=== PATIENT | male | born 1975 | race Caucasian/White ===

== ENCOUNTER 2020-01-23 07:00 | Inpatient (IN) | payer MEDICAID ==
[~2020-01-23] VITALS: Ht 185.4 cm; Wt 143.8 kg
[2020-01-23] MEDS ORDERED: FEE PK DOSING 1 MIN EA MC ONE (07:01)
[2020-01-23] MEDS ORDERED: MORPHINE SULFATE INJ 2 MG/ML DISP.SYRIN IV ONE (07:30)
[2020-01-23] MEDS ORDERED: ONDANSETRON HCL/PF 4 MG/2 ML VIAL IVP ONE (07:30)
[2020-01-23] MEDS ORDERED: IV NS 0.9% 500 ML BAG IV ONE (07:30)
--- NOTE | 2020-01-23 07:44 | NUR ---
PT REC'D TO ER VIA EMS LEFT LEG RED SWOLLEN CELLUTITIS FOR 3 DAYS HIV POS OFF MEDS FOR 1 MONTH HEART DECEMBER 2018 QUAD BYPASS . IV STARTED 18G LEFT AC LABS DRAWN SENT TO LAB
[2020-01-23] MEDS ORDERED: MORPHINE SULFATE INJ 4 MG/ML DISP.SYRIN ONE (07:46)
[2020-01-23] MEDS ORDERED: ONDANSETRON HCL/PF 4 MG/2 ML VIAL ONE (07:47)
[2020-01-23 07:55] LABS: BASOPHILS # (AUTO) 0.1 /CMM (0.0-0.2); BASOPHILS % (AUTO) 0.6 % (0.0-2.0); EOSINOPHILS % (AUTO) 0.3 % (0.0-6.0); HEMATOCRIT 44 % (39-51); HEMOGLOBIN 15.1 g/dL (13.5-17.5); LYMPHOCYTES # (AUTO) 2.1 /CMM (0.8-4.8); LYMPHOCYTES % (AUTO) 24.5 % (20.0-44.0); MEAN CORPUSCULAR HGB CONC 35 g/dl (31.0-36.0); MEAN CORPUSCULAR VOLUME 92 fL (80-96); MONOCYTES # (AUTO) 1.1 /CMM (0.1-1.30); NEUTROPHILS # (AUTO) 5.3 /CMM (1.8-8.9); NEUTROPHILS % (AUTO) 61.6 % (43.0-81.0); PLATELET COUNT (AUTO) 200 /CMM (150-450); RED BLOOD CELL COUNT(AUTO) 4.79 MIL/uL (4.5-6.0); WHITE BLOOD COUNT (AUTO) 8.7 K/uL (4.3-11.0)
[2020-01-23 08:00] LABS: CREATININE 1.4 mg/dL (0.6-1.3); POTASSIUM 3.1 mmol/L (3.5-5.1)
[2020-01-23] MEDS ORDERED: VANCOMYCIN 1 GM in IV D5W 250 ML IV ONE (08:00)
[2020-01-23] MEDS ORDERED: PIPERACILLIN /TAZOBACTAM 3.375 G in IV D5W 50 ML IV ONE (08:00)
[2020-01-23 08:15] LABS: BILIRUBIN,DIRECT 0.4 mg/dL (0.0-0.2); BILIRUBIN,TOTAL 1.3 mg/dL (0.2-1.0); TOTAL PROTEIN, SERUM 9.7 g/dL (6.4-8.2)
--- NOTE | 2020-01-23 08:28 | NUR ---
meds given per md order for pain ms 4 mgivp 10/10 pain left leg
--- NOTE | 2020-01-23 08:39 | NUR ---
iv meds given per m d order vss
--- NOTE | 2020-01-23 09:01 | NUR ---
pt given breakfast then fell asleep
[2020-01-23] MEDS ORDERED: LISI10TA5 PO (10:49)
[2020-01-23] MEDS ORDERED: METO25TA20 PO (10:49)
[2020-01-23] MEDS ORDERED: ATOR80TA PO (10:49)
[2020-01-23] MEDS ORDERED: FERR-68 PO (10:49)
[2020-01-23] MEDS ORDERED: ACETAMINOPHEN 325 MG TABLET PO PRN (11:00)
[2020-01-23] MEDS ORDERED: Z GUARD REMEDY 2 OZ OINT TP PRN (11:00)
[2020-01-23] MEDS ORDERED: MAG HYDROX/AL HYDROX/SIMETH 30 ML UDC PO PRN (11:00)
[2020-01-23] MEDS ORDERED: MAGNESIUM HYDROXIDE 30 ML UDC PO PRN (11:00)
[2020-01-23] MEDS ORDERED: HYDROCODONE/APAP 5/325MG 1 EACH TABLET PO PRN (11:00)
[2020-01-23] MEDS ORDERED: ZOLPIDEM TARTRATE 5 MG TABLET PO PRN (11:00)
[2020-01-23] MEDS ORDERED: ONDANSETRON HCL/PF 4 MG/2 ML VIAL IVP PRN (11:00)
--- NOTE | 2020-01-23 11:43 | NUR ---
PT STABLE FOR TRANSFER REPORT GIVEN TO ANNAMARIA
--- NOTE | 2020-01-23 12:28 | NUR ---
MS/RN New admit New admission from emergency room with left leg cellulitis. Patient A/O X4, stating that current pain scale is 8/10 to left leg. Informed that pain medication would be given as soon as pharmacy had entered it into computer. Patient fully admitted, pictures taken of left leg and scar to mid chest from previous triple bypass surgery in December of 2018. Oriented to new surroundings, aware of how to operate bed, television and how to call for help, patient stated understanding. Lunch tray ordered from kitchen. Will continue to monitor and ensure safety.
[2020-01-23 12:30] VITALS: BP 131/77
[2020-01-23] MEDS: MORPHINE SULFATE INJ 2 MG/ML DISP.SYRIN IV PRN ×2 (14:39→21:39)
[2020-01-23] MEDS: PIPERACILLIN /TAZOBACTAM 3.375 G in IV D5W 50 ML IV SCH ×2 (14:39→21:30)
--- NOTE | 2020-01-23 15:00 | NUR ---
MS/RN Zosyn Zosyn 3.375mg administered as ordered.
[2020-01-23] MEDS: VANCOMYCIN 0.75 GM in IV D5W 250 ML IV SCH (16:14)
--- NOTE | 2020-01-23 17:00 | NUR ---
MS/RN Vanco Vanco dose administered as ordered, trough scheduled for 0800 01/23 before third dose.
--- NOTE | 2020-01-23 18:17 | NUR ---
MS/RN End note Patient remains in stable condition, all needs attended. Both IVAB infused as ordered, no reaction noted. Encouraged to keep both lower extremities elevated on pillows whist in bed to help reduce edema. All questions and concerns addressed, call light within reach. Will endorse to shift production supervisor.
[2020-01-23 20:00] VITALS: BP 140/89
--- NOTE | 2020-01-23 20:10 | NUR ---
RN NOTES: MET WITH PT AT BED SIDE. PT A/O X4, ON RA RESPIRATIONS EVEN A ND UNLABORED. IV ACCESS PATENT AND FLUSHING WELL ON HL. LLE NOTED TO BE SWELLING, PT ABLE TO MOVE AND WIGGLE TOES, DENIES ANY NUMBNESS TINGLING SENSATION, BUT CLAIMED THAT PAIN IS THROBBING AND SHARP WHEN MOVING LEGS. DISCUSSED PLAN OF CARE TO PT. SAFETY PRECAUTIONS FOR FALL INITIATED, CALL LIGHT IN REACH, WILL CONTINUE MONITORING PT.
--- NOTE | 2020-01-23 21:40 | NUR ---
MS RN PRN MORPHINE: PT C/O OF 8/10 PAIN ON LEFT LEG REQUESTING PAIN MEDICATION. MEDICATION PRN MORPHINE 2MG IV PUSH ADMINISTERED AT THIS TIME. WILL CONTINUE TO MONITOR.
[2020-01-23] MEDS ORDERED: POTASSIUM CHLORIDE 20 MEQ TAB.PRT.SR PO ONE (22:00)
--- NOTE | 2020-01-24 | NUR ---
RN NOTES: FOUND ORDER FOR US ABDOMEN IN AM, PLACED PT ON NPO P MN, PT AGREE AND UNDERSTAND.
[2020-01-24] MEDS: VANCOMYCIN 0.75 GM in IV D5W 250 ML IV SCH ×2 (00:45→09:21)
[2020-01-24] MEDS: PIPERACILLIN /TAZOBACTAM 3.375 G in IV D5W 50 ML IV SCH ×4 (02:52→21:28)
--- NOTE | 2020-01-24 06:43 | NUR ---
end of shift report: pt cooperative throughout the shift, prn morphine administered for c/o left leg pain post ambulation last night. all due meds administered. pt currently on npo awaiting for us of abdomen/liver. lle kept offloaded on pillows. according to pt, his left has improved a lot compared to past 3days and pt very pleased with the result. iv access on right ac remains patent and flushing well, on hl, no s/s of iv infiltration noted. safety precautions for fall remains engaged, call light in reach, hourly rounding performed. will endorse to day rn for continuity of care.
[2020-01-24 07:13] LABS: BASOPHILS % (AUTO) 0.5 % (0.0-2.0); EOSINOPHILS % (AUTO) 1.3 % (0.0-6.0); HEMATOCRIT 39 % (39-51); HEMOGLOBIN 13.3 g/dL (13.5-17.5); LYMPHOCYTES # (AUTO) 1.9 /CMM (0.8-4.8); LYMPHOCYTES % (AUTO) 27.6 % (20.0-44.0); MEAN CORPUSCULAR HGB CONC 34 g/dl (31.0-36.0); MEAN CORPUSCULAR VOLUME 91 fL (80-96); MONOCYTES # (AUTO) 0.9 /CMM (0.1-1.30); MONOCYTES % (AUTO) 13.5 % (2.0-12.0); NEUTROPHILS % (AUTO) 57.1 % (43.0-81.0); PLATELET COUNT (AUTO) 188 /CMM (150-450); RED BLOOD CELL COUNT(AUTO) 4.28 MIL/uL (4.5-6.0)
[2020-01-24 07:30] LABS: ALBUMIN 2.6 g/dL (3.4-5.0); BILIRUBIN,DIRECT 0.3 mg/dL (0.0-0.2); CALCIUM, SERUM 8.7 mg/dL (8.5-10.1); CREATININE 1.4 mg/dL (0.6-1.3); MAGNESIUM 2.2 mg/dL (1.8-2.4); POTASSIUM 3.2 mmol/L (3.5-5.1); TOTAL PROTEIN, SERUM 8.5 g/dL (6.4-8.2)
[2020-01-24 07:37] LABS: THYROID STIMULATING HORMONE 2.303 uIU/mL (0.358-3.74)
[2020-01-24 08:00] VITALS: BP 125/83
[2020-01-24] MEDS: METOPROLOL TARTRATE 25 MG TABLET PO SCH (08:39)
[2020-01-24] MEDS: PANTOPRAZOLE 40 MG TABLET.DR PO SCH (08:39)
[2020-01-24] MEDS: FERROUS SULFATE (325 MG) 325 MG/TAB TABLET PO SCH (08:39)
[2020-01-24] MEDS: LISINOPRIL (10MG) 10 MG TABLET PO SCH ×2 (08:40→17:23)
[2020-01-24] MEDS ORDERED: DOLU50TA PO (08:52)
[2020-01-24] MEDS ORDERED: EMTR1TAB17 PO (08:52)
--- NOTE | 2020-01-24 09:35 | NUR ---
WOUND CARE CONSULT: PT PRESENTS WITH RED SWOLLEN LEFT LOWER LEG, PRESENT ON ADMISSION. LEGS ELEVATED. NO OPEN WOUNDS NOTED. PT IS INDEPENDENT WITH BED MOBILITY AND CONTINENT. WILL SEE PRN. CURRENT FREDI SCORE IS 19.
[2020-01-24 16:00] VITALS: BP 111/61
[2020-01-24] MEDS: VANCOMYCIN 1 GM in IV D5W 250ml IV SCH (17:17)
--- NOTE | 2020-01-24 19:07 | NUR ---
HANDOFF WITH NOELLE ARIZMENDI, NIGHT TEAM. ALYSHA Calvert RN
--- NOTE | 2020-01-24 19:10 | NUR ---
MS RN NOTES RECEIVED PT IN BED AWAKE AND ABLE TO MAKE NEEDS KNOWN. PT A/OX3. RESPIRATIONS EVEN AND UNLABORED WITH NO S/S OF ACUTE DISTRESS OR SOB NOTED. NO COMPLAINTS OF PAIN AT THIS TIME. SAFETY MEASURES IN PLACE WITH BED IN LOWEST LOCKED POSITION WITH SIDE RAILS UPX2. CALL LIGHT WITHIN REACH. WILL CONTINUE TO MONITOR.
[2020-01-24 20:00] VITALS: BP 118/71
[2020-01-25] MEDS: VANCOMYCIN 1 GM in IV D5W 250ml IV SCH ×3 (00:20→16:33)
[2020-01-25] MEDS: PIPERACILLIN /TAZOBACTAM 3.375 G in IV D5W 50 ML IV SCH ×4 (04:04→20:25)
[2020-01-25 06:56] LABS: BASOPHILS % (AUTO) 0.5 % (0.0-2.0); EOSINOPHILS % (AUTO) 2.5 % (0.0-6.0); HEMATOCRIT 39 % (39-51); HEMOGLOBIN 12.9 g/dL (13.5-17.5); LYMPHOCYTES # (AUTO) 2.1 /CMM (0.8-4.8); MEAN CORPUSCULAR HGB CONC 34 g/dl (31.0-36.0); MEAN CORPUSCULAR VOLUME 93 fL (80-96); MONOCYTES # (AUTO) 0.7 /CMM (0.1-1.30); MONOCYTES % (AUTO) 9.5 % (2.0-12.0); NEUTROPHILS # (AUTO) 4.4 /CMM (1.8-8.9); NEUTROPHILS % (AUTO) 59.5 % (43.0-81.0); PLATELET COUNT (AUTO) 194 /CMM (150-450); RED BLOOD CELL COUNT(AUTO) 4.17 MIL/uL (4.5-6.0); WHITE BLOOD COUNT (AUTO) 7.4 K/uL (4.3-11.0)
[2020-01-25 07:09] LABS: CALCIUM, SERUM 8.5 mg/dL (8.5-10.1); CREATININE 1.1 mg/dL (0.6-1.3); MAGNESIUM 2.3 mg/dL (1.8-2.4); POTASSIUM 3.3 mmol/L (3.5-5.1)
[2020-01-25 07:21] LABS: ALBUMIN 2.5 g/dL (3.4-5.0); BILIRUBIN,DIRECT 0.2 mg/dL (0.0-0.2); BILIRUBIN,TOTAL 0.5 mg/dL (0.2-1.0); TOTAL PROTEIN, SERUM 8.3 g/dL (6.4-8.2)
--- NOTE | 2020-01-25 07:21 | NUR ---
MS RN NOTES RECEIVED PT IN BED AWAKE AND ABLE TO MAKE NEEDS KNOWN. PT A/OX3. RESPIRATIONS EVEN AND UNLABORED WITH NO S/S OF ACUTE DISTRESS OR SOB NOTED THROUGHOUT SHIFT. NO COMPLAINTS OF PAIN AT THIS TIME. SAFETY MEASURES IN PLACE WITH BED IN LOWEST LOCKED POSITION WITH SIDE RAILS UPX2. CALL LIGHT WITHIN REACH. WILL ENDORSE TO ONCOMING NURSE FOR VELMA.
[2020-01-25] MEDS: PANTOPRAZOLE 40 MG TABLET.DR PO SCH (07:40)
--- NOTE | 2020-01-25 07:51 | NUR ---
MS/RN OPENING NOTES RECEIVED PATIENT IN BED AWAKE. PATIENT A/OX3. RESPIRATIONS EVEN AND UNLABORED WITH NO S/S OF ACUTE DISTRESS NOTED. NO COMPLAINTS OF PAIN AT THIS TIME. SAFETY MEASURES IN PLACE WITH BED IN LOWEST LOCKED POSITION WITH SIDE RAILS UPX2. CALL LIGHT WITHIN REACH. WILL CONTINUE TO MONITOR.
[2020-01-25 08:08] VITALS: BP 126/67
[2020-01-25] MEDS: METOPROLOL TARTRATE 25 MG TABLET PO SCH (08:29)
[2020-01-25] MEDS: FERROUS SULFATE (325 MG) 325 MG/TAB TABLET PO SCH (08:29)
[2020-01-25] MEDS ORDERED: POTASSIUM CHLORIDE 20 MEQ TAB.PRT.SR PO ONE (08:30)
[2020-01-25] MEDS: LISINOPRIL (10MG) 10 MG TABLET PO SCH ×2 (08:30→16:57)
[2020-01-25 16:12] VITALS: BP 115/72
--- NOTE | 2020-01-25 18:47 | NUR ---
MS/RN CLOSING NOTES PATIENT IS ALERT AND ORIENTED X4. PATIENT IN NO APPARENT DISTRESS NOTED. DENIES PAIN AT THIS TIME. IV ACCESS AT LEFT AC #22G INTACT AND PATENT. SEEN AND EXAMINED BY MD WITH NO NEW ORDER AND NOTED. CHECKED PATIENT EVERY 2 HOURS. KEPT PATIENT CLEAN AND COMFORTABLE THE WHOLE TIME . ALL DUE MEDS WAS GIVEN. ALL NEEDS WAS ATTENDED. BED IN LOWEST POSITION. SIDE RAILS UP X2. CALL LIGHT WITH IN REACH. WILL ENDORSED TO PERINATAL BREASTFEEDING ASSISTANT FOR VELMA.
--- NOTE | 2020-01-25 19:17 | NUR ---
MS RN OPENING NOTES: RECEIVED PT ON ROOM AIR AND IS TOLERATING WELL. PT LAYING DOWN ON BED AND IS A/OX4. PT IS WATCHING TELEVISION AT THIS TIME. NO SOB NOTED. NO S/S OF DISTRESS. PT HAS IV ON L FOREARM #22G AND IS PATENT AND INTACT. CURRENTLY H/L. BED KEPT IN LOW, LOCKED POSITION, AND SIDE RAILS X 2 UP. WILL CONTINUE TO MONITOR PT.
[2020-01-25 20:00] VITALS: BP 137/77
[2020-01-26] MEDS: VANCOMYCIN 1.25 GM in IV D5W 250 ML IV SCH ×2 (00:16→08:58)
[2020-01-26] MEDS: PIPERACILLIN /TAZOBACTAM 3.375 G in IV D5W 50 ML IV SCH ×3 (02:01→11:27)
--- NOTE | 2020-01-26 06:42 | NUR ---
MS RN CLOSING NOTES: ALL NEEDS WERE ATTENDED AND ANTICIPATED FOR. PT INDEPENDENT AND IS LAYING IN BED USING HIS PHONE AT THIS TIME. NO SOB NOTED. NO S/S OF DISTRESS. IV REMAINS INTACT ON L FOREARM #22G AND IS PATENT AND INTACT. HAS BEEN FLUSHED. CURRENTLY H/L. BED KEPT IN LOW, LOCKED POSITION, AND SIDE RAILS X 2UP. INSTRUCTED PT TO USE CALL LIGHT FOR ASSISTANCE. WILL ENDORSE TO AM NURSE FOR VELMA.
--- NOTE | 2020-01-26 07:10 | NUR ---
MS RN OPENING NOTES RECEIVED PT IN BED AWAKE AT THIS TIME WITH HOB ELEVATED. AOX4. RESPIRATIONS EVEN AND UNLABORED. PT SATURATING WELL ON RA AT 98%. NO S/S OF ANY ACUTE DISTRESS NOTED. NO COMPLAINS OF PAIN AT THIS TIME. IV ACCESS ON LFA G#22, INTACT AND PATENT. PT ABLE TO VERBALIZE NEEDS, PT UNDERSTANDS TO CALL FOR ASSISTANCE. SAFETY PRECAUTIONS IN PLACE. BED IN LOWEST LOCKED POSITION, SIDE RAILS UP X 2, CALL LIGHT WITHIN REACH. WILL CONTINUE TO MONITOR
--- NOTE | 2020-01-26 07:16 | NUR ---
MS RN CLOSING NOTES: ENDORSED TO AM NURSE, NA, FOR VELMA.
[2020-01-26 07:28] LABS: BASOPHILS % (AUTO) 0.5 % (0.0-2.0); CALCIUM, SERUM 8.8 mg/dL (8.5-10.1); CREATININE 1.2 mg/dL (0.6-1.3); EOSINOPHILS % (AUTO) 2.4 % (0.0-6.0); HEMATOCRIT 40 % (39-51); HEMOGLOBIN 13.5 g/dL (13.5-17.5); LYMPHOCYTES # (AUTO) 2.1 /CMM (0.8-4.8); LYMPHOCYTES % (AUTO) 28.2 % (20.0-44.0); MEAN CORPUSCULAR HGB CONC 34 g/dl (31.0-36.0); MEAN CORPUSCULAR VOLUME 93 fL (80-96); MONOCYTES # (AUTO) 0.6 /CMM (0.1-1.30); MONOCYTES % (AUTO) 8.2 % (2.0-12.0); NEUTROPHILS # (AUTO) 4.6 /CMM (1.8-8.9); NEUTROPHILS % (AUTO) 60.7 % (43.0-81.0); PLATELET COUNT (AUTO) 229 /CMM (150-450); POTASSIUM 3.6 mmol/L (3.5-5.1); WHITE BLOOD COUNT (AUTO) 7.6 K/uL (4.3-11.0)
[2020-01-26 08:00] VITALS: BP 127/78
[2020-01-26] MEDS: PANTOPRAZOLE 40 MG TABLET.DR PO SCH (08:07)
[2020-01-26] MEDS: FERROUS SULFATE (325 MG) 325 MG/TAB TABLET PO SCH (09:00)
[2020-01-26 09:01] VITALS: BP 127/78
[2020-01-26] MEDS: LISINOPRIL (10MG) 10 MG TABLET PO SCH (09:01)
[2020-01-26] MEDS: METOPROLOL TARTRATE 25 MG TABLET PO SCH (09:01)
[2020-01-26] MEDS ORDERED: DOXY100C41 PO (09:13)
--- NOTE | 2020-01-26 14:03 | NUR ---
RN MS NOTES PT AWAKE, ALERT AND ORIENTED, AMBULATES WITH STEADY GAIT IN HIS ROOM AND TO THE BATHROOM, SEEN BY DR. PERSON, DISCHARGE ORDER GIVEN, DISCHARGE AND MEDICATION INSTRUCTIONS PROVIDED TO PT, VERBALIZED UNDERSTANDING, NEW PRESCRIPTION GIVEN TO PT, BELONGINGS ACCOUNTED FOR, ASSISTED PT TO HOSPITAL LOBBY, LEFT IN STABLE CONDITION.
== END 2020-01-26 14:00 | disposition home or self-care (01) | DRG 383 ==
LOC: ER 07:00 → MED 11:40
PROVIDERS: ADMIT Student in an Organized Health Care Education/Training Program; ATTEND Nurse Practitioner Acute Care
DX: L03.116 Cellulitis of left lower limb (principal); N17.0 Acute kidney failure with tubular necrosis; E44.0 Moderate protein-calorie malnutrition; E87.1 Hypo-osmolality and hyponatremia; I25.10 Atherosclerotic heart disease of native coronary artery without angina pectoris; Z95.1 Presence of aortocoronary bypass graft; I12.9 Hypertensive chronic kidney disease with stage 1 through stage 4 chronic kidney disease, or unspecified chronic kidney disease; N18.9 Chronic kidney disease, unspecified; R74.0 Nonspecific elevation of levels of transaminase and lactic acid dehydrogenase [LDH]; E87.6 Hypokalemia; E78.5 Hyperlipidemia, unspecified; Z68.41 Body mass index [BMI] 40.0-44.9, adult; Z91.14 Patient's other noncompliance with medication regimen; E88.09 Other disorders of plasma-protein metabolism, not elsewhere classified
CPT/HCPCS: 36415; 76700-TC; 80048-TC; 80061-TC; 80076-TC; 80202-TC; 83735-TC; 84100-TC; 84443-TC; 85025-TC; 85730-TC; 87040-TC; 87081-TC; 97116-TC; 97530-TC; G0378; J2270; J2405; J2543; J3370; J7030; J7050; J7060

== ENCOUNTER 2020-03-24 11:26 | Emergency (ER) | payer MEDICAID ==
[~2020-03-24] VITALS: Ht 185.4 cm; Wt 145.1 kg
[~2020-03-24 11:26] MED LIST: ATOR80TA PO; DOLU50TA PO; DOXY100C41 PO; EMTR1TAB17 PO; FERR-68 PO; METO25TA20 PO
[2020-03-24 11:58] VITALS: BP 137/92
[2020-03-24] MEDS ORDERED: predniSONE 20 MG TABLET ONE (12:05)
[2020-03-24] MEDS ORDERED: CLINDAMYCIN HCL 150 MG CAPSULE PO ONE ×2 (12:05→12:30)
--- NOTE | 2020-03-24 12:10 | NUR ---
Patient discharged to home in stable condition. Written and verbal after care instructions given. Patient verbalizes understanding of instruction. Pt ambulatory with a steady gait
[2020-03-24] MEDS ORDERED: predniSONE 20 MG TABLET PO ONE (12:30)
== END 2020-03-24 12:12 | disposition home or self-care (01) ==
LOC: ER 11:31
DX: J36 Peritonsillar abscess (principal); Z95.1 Presence of aortocoronary bypass graft; Z60.2 Problems related to living alone; Z79.899 Other long term (current) drug therapy
CPT/HCPCS: 99283; J7512

== ENCOUNTER 2022-05-02 12:44 | Emergency (ER) | payer MEDICAID ==
[~2022-05-02] VITALS: Ht 185.4 cm; Wt 140.6 kg
[~2022-05-02 12:44] MED LIST changes: +DOXY-326 PO; -DOXY100C41 PO
[2022-05-02] MEDS ORDERED: LIDOCAINE 1%-EPI 1:100,000 20 ML VIAL ONE (13:24)
--- NOTE | 2022-05-02 13:28 | NUR ---
Patient came in to the er c/o L side buttock pain from ascess x 4 days, started draining last night. On room air, breathing evenly and unlabored. Kept comfortable, will continue to monitor accordingly.
[2022-05-02] MEDS ORDERED: LIDOCAINE 1%-EPI 1:100,000 50 ML VIAL IJ ONE (13:30)
[2022-05-02] MEDS ORDERED: SULF1TAB47 PO (13:54)
[2022-05-02 14:01] VITALS: BP 110/71
--- NOTE | 2022-05-02 14:02 | NUR ---
Patient discharged to home in stable condition. Written and verbal after care instructions given. Patient verbalizes understanding of instruction.
== END 2022-05-02 14:02 | disposition home or self-care (01) ==
LOC: ER 13:01
DX: L02.416 Cutaneous abscess of left lower limb (principal); Z60.2 Problems related to living alone; Z98.890 Other specified postprocedural states; Z79.899 Other long term (current) drug therapy
CPT/HCPCS: 99284; 10060; J3490 ×2; A6407

== ENCOUNTER 2023-03-21 07:00 | Inpatient (IN) | payer MEDICAID, OTHER ==
[~2023-03-21] VITALS: Ht 182.9 cm; Wt 121.1 kg
[~2023-03-21 07:00] MED LIST changes: +SULF1TAB47 PO
--- NOTE | 2023-03-21 07:15 | NUR ---
RICARDO TO BE SEEN BY JAMISON PT FROM [facility] AWAKE PROVIDER
--- NOTE | 2023-03-21 07:22 | NUR ---
Saul AOx4, able to express his concerns. Saul states he has been experiencing lower extremity edema for a while "on and off", today is worse. Discussed plan of care, saul verbalized agreement. All safety precautions taken.
--- NOTE | 2023-03-21 07:48 | NUR ---
IV ACCESS ESTABLISHED. 18G LEFT AC. BLOOD DRAWN AND SENT TO LAB INCLUDING CULTURES.
[2023-03-21] MEDS ORDERED: VANCOMYCIN HCL 1.25 GM in IV D5W 260 ML IV ONE (08:00)
[2023-03-21 08:10] LABS: BASOPHILS % (AUTO) 0.3 % (0.0-2.0); EOSINOPHILS % (AUTO) 0.3 % (0.0-6.0); HEMATOCRIT 40 % (39-51); HEMOGLOBIN 13.2 g/dL (13.5-17.5); LYMPHOCYTES # (AUTO) 1.4 K/uL (0.8-4.8); LYMPHOCYTES % (AUTO) 10.7 % (20.0-44.0); MEAN CORPUSCULAR HGB CONC 33 g/dl (31.0-36.0); MEAN CORPUSCULAR VOLUME 88 fL (80-96); MONOCYTES # (AUTO) 1.1 K/uL (0.1-1.30); MONOCYTES % (AUTO) 8.4 % (2.0-12.0); NEUTROPHILS # (AUTO) 10.3 K/uL (1.8-8.9); NEUTROPHILS % (AUTO) 80.3 % (43.0-81.0); PLATELET COUNT (AUTO) 182 K/uL (150-450); RED BLOOD CELL COUNT(AUTO) 4.54 MIL/uL (4.5-6.0); WHITE BLOOD COUNT (AUTO) 12.8 K/uL (4.3-11.0)
[2023-03-21 08:33] LABS: ALANINE AMINOTRANSFERASE 53 U/L (12-78); ALBUMIN 2.3 g/dL (3.4-5.0); ALKALINE PHOSPHATASE 123 U/L (46-116); ASPARTATE AMINOTRANSFERASE 49 U/L (15-37); BILIRUBIN,DIRECT 0.6 mg/dL (0.0-0.2); BILIRUBIN,TOTAL 1.3 mg/dL (0.2-1.0); CALCIUM, SERUM 8.9 mg/dL (8.5-10.1); CARBON DIOXIDE 25 mmol/L (21-32); CHLORIDE 99 mmol/L (98-107); CREATININE 2.8 mg/dL (0.6-1.3); GLUCOSE 126 mg/dL (74-106); SODIUM SERUM 137 mmol/L (136-145); UREA NITROGEN, BLOOD 23 mg/dL (7-18)
[2023-03-21 08:35] LABS: POTASSIUM 2.5 mmol/L (3.5-5.1)
--- NOTE | 2023-03-21 08:36 | NUR ---
POTASSIUM 2.5 , MADE AWARE
[2023-03-21] MEDS ORDERED: POTASSIUM CHLORIDE 20 MEQ TAB.PRT.SR PO ONE ×2 (09:30→09:38)
[2023-03-21] MEDS ORDERED: POTASSIUM CL. PREMIX PERIPHER. 100 ML ONE ×2 (09:38→11:41)
[2023-03-21] MEDS ORDERED: ASPI-1169 PO (09:40)
[2023-03-21] MEDS ORDERED: LISI10TA29 PO (09:40)
[2023-03-21] MEDS ORDERED: ACET-2605 PO (09:40)
[2023-03-21] MEDS ORDERED: OMEP40CA21 PO (09:40)
[2023-03-21] MEDS ORDERED: BICT1TAB MT (09:40)
[2023-03-21] MEDS ORDERED: SEMA1PEN SQ (09:40)
--- NOTE | 2023-03-21 09:40 | NUR ---
resting and asleepy no pain
[2023-03-21] MEDS ORDERED: OMEG1CAP PO (09:45)
[2023-03-21] MEDS: POTASSIUM CL. PREMIX PERIPHER. 50 ML IV SCH ×4 (09:56→13:03)
--- NOTE | 2023-03-21 11:28 | NUR ---
room 327-2
--- NOTE | 2023-03-21 11:55 | NUR ---
HAND OFF CARMELA. JOSIAH DRAKE TO ROOM 327-2 VIA SUNDAR HERMOSILLO VS AND CONDITION
[2023-03-21] MEDS ORDERED: ACETAMINOPHEN ES 500 MG TABLET PO PRN (12:00)
[2023-03-21] MEDS ORDERED: ZOLPIDEM TARTRATE 5 MG TABLET PO PRN (12:00)
[2023-03-21] MEDS ORDERED: MAGNESIUM HYDROXIDE 30 ML UDC PO PRN (12:00)
[2023-03-21] MEDS ORDERED: Z GUARD REMEDY 4 OZ OINT TP PRN (12:00)
[2023-03-21] MEDS ORDERED: CEFEPIME 1 GM in IV D5W 50 ML IV SCH (12:00)
[2023-03-21] MEDS ORDERED: DEXTROSE 50%-WATER 50 ML DISP.SYRIN IV PRN (12:00)
[2023-03-21] MEDS ORDERED: MAG HYDROX/AL HYDROX/SIMETH 30 ML UDC PO PRN (12:00)
--- NOTE | 2023-03-21 12:00 | NUR ---
ADMISSION RN NOTES: ADMITTED A 47YO MALE PT FROM ER VIA GURNEY ACCOMPANIED BY TRANSPORTER AND NOELLE MADRIGAL. RECEIVED REPORT FROM NOELLE MADRIGAL. PT IS AMBULATORY. PT ALERT AND ORIENTED X 4 AND ABLE TO MAKE NEEDS KNOWN. ON ROOM AIR AND TOLERATING WELL. DENIES PAIN AT THIS TIME. IV ACCESS ON LEFT AC GAUGE 18 RUNNING POTASSIUM CHLORIDE FROM ER AND GAVE A 1 BAG OF KCL FROM NOELLE MADRIGAL.SKIN ASSESSMENT DONE-ITS LIMITED BECAUSE PT IS HAVING HARD TIME TURNING BUT PT IS COOPERATIVE. ALL BELONGINGS AT BED SIDE. ATTACHED TELE MONITOR WITH CURRENT READING NORMAL SINUS @98BPM. INTRODUCED PT TO STAFFS,UNIT AND ROOM MATE. PROVIDED WATER AND BED SIDE TABLE,. SAFETY MEASURES INITIATED: BED LOCKED AND IN LOWEST POSITION: SIDE RAILS UP X 2 CALL LIGHT IN EASY REACH AND WILL MONITOR PT ACCORDINGLY.
[2023-03-21] MEDS: BLOOD SUGAR DIAGNOSTIC 1 EACH STRIP IN SCH ×3 (12:05→21:32)
[2023-03-21] MEDS ORDERED: HYDROMORPHONE 1 MG/1 ML DISP.SYRIN IV PRN (12:30)
--- NOTE | 2023-03-21 13:00 | NUR ---
RN NOTES: INSTRUCTED PT TO BRING HIV MEDS PER PHARMACIST. PT STATED YES HIS FRIEND WILL BRING OVER. WILL REMIND AGAIN AND WILL ENDORSE TO NEXT SHIFT.
[2023-03-21] MEDS: ACETAMINOPHEN 325 MG TABLET PO PRN (13:19)
[2023-03-21] MEDS: CEFEPIME 2 GM in IV D5W 100 ML IV SCH (13:21)
--- NOTE | 2023-03-21 14:42 | NUR ---
NAUSEA AND VOMITING: PT VOMITED HIS FOOD, ZOFRAN IV GIVEN INTRAVENOUSLY.
[2023-03-21] MEDS: ONDANSETRON HCL/PF 4 MG/2 ML VIAL IVP PRN (14:43)
[2023-03-21 15:30] VITALS: BP 128/69
[2023-03-21] MEDS: PANTOPRAZOLE 40 MG TABLET.DR PO SCH (16:47)
[2023-03-21] MEDS: INSULIN REGULAR, HUMAN 100 UNIT/ML 3 ML VIAL SQ PRN ×2 (16:49→21:32)
[2023-03-21] MEDS: IV NS 0.9% 1,000 ML IV PRN (16:51)
--- NOTE | 2023-03-21 17:10 | NUR ---
RN NOTES: CEASED NAUSEA AND VOMITING PER PT STATED.
--- NOTE | 2023-03-21 18:55 | NUR ---
AUTOMOBILE RENTAL AGENT CLOSING NOTES: PT IN BED ASLEEP, EASILY AROUSED WITH STIMULI, ALERT AND ORIENTED X 4 AND ABLE TO MAKE NEEDS KNOWN NO SOB OR CARDIAC DISTRESS NOTED. DENIES ANY PAIN/DISCOMFORTS AT THIS TIME. IV ACCESS ON LAC GAUGE 18 PATENT INTACT AND INFUSING NS 1L @90ML/HR. SAFETY MEASURES MAINTAINED BED LOCKED AND IN LOWEST POSITION, SIDE RAILS UP X 2. CALL LIGHT IN EASY REACH. WILL ENDORSE TO BOX SEALING MACHINE CATCHER NURSE FOR CONTINUITY OF CARE.
--- NOTE | 2023-03-21 19:00 | NUR ---
RN OPENING NOTE RECEIVED PT ASLEEP IN BED. PT IS A/O X 4. PT IS IN RA, TOLERATING WELL, BREATHING EVEN AND UNLABORED @ THIS TIME. PT IV PRESENT IS LEFT AC #18G, RUNNING NS @90MLS/HR, PATENT, INTACT AND FLUSHES WELL W/ NO S&SX OF INFILTRATION @ SITE NOTED. PT MUSICAL THERAPIST IS IN PLACE WITH CURRENT READING OF SINUS RHYTHM, HR OF 112BPM. SAFETY MEASURES IS IN PLACE. BED IN LOWEST & LOCKED POSITION. SIDE RAILS UP X 2. BEDSIDE TABLE AND CALL LIGHT IS WITHIN REACH. BED ALARM IS ON. WILL CONTINUE TO MONITOR PT ACCORDINGLY.
[2023-03-21 20:00] VITALS: BP 135/79
[2023-03-21] MEDS: ATORVASTATIN 40 MG TABLET PO SCH (21:07)
--- NOTE | 2023-03-21 21:33 | NUR ---
HELD INSULIN REGULAR D/T PT BLOOD GLUCOSE OF 94.
--- NOTE | 2023-03-21 22:37 | NUR ---
PT CALLED COMPLAINING OF FEELING BLOTED AND GASSY.
--- NOTE | 2023-03-21 22:39 | NUR ---
MAALOX SUSPENSION 30 ML GIVEN TO PT FOR BLOATING AND GASSINESS.
[2023-03-22] VITALS: BP 125/83
[2023-03-22] MEDS: CEFEPIME 2 GM in IV D5W 100 ML IV SCH ×2 (00:02→14:24)
[2023-03-22] MEDS: IV NS 0.9% 1,000 ML IV PRN (03:39)
[2023-03-22 04:00] VITALS: BP 153/79
[2023-03-22] MEDS: BLOOD SUGAR DIAGNOSTIC 1 EACH STRIP IN SCH ×4 (06:31→22:29)
[2023-03-22] MEDS: INSULIN REGULAR, HUMAN 100 UNIT/ML 3 ML VIAL SQ PRN ×4 (06:32→22:29)
--- NOTE | 2023-03-22 06:33 | NUR ---
RN OPENING NOTE PT AWAKE & RESTING COMFORTABLY IN BED. PT IS A/O X 4. RESPOSNIVE AND FOLLOWS VERBAL COMMAND. PT IS IN RA, W/ NO S&SX OF RESPIRATORY DISTRESS @ THIS TIME. PT IV PRESENT IS LEFT AC #18G, RUNNING NS @90MLS/HR, PATENT, INTACT AND FLUSHES WELL W/ NO S&SX OF INFILTRATION @ SITE NOTED. PT COPY PREPARER IS IN PLACE WITH CURRENT READING OF SINUS BRADYCARDIA, HR 54BPM. SAFETY MEASURES IS IN PLACE. BED IN LOWEST & LOCKED POSITION. SIDE RAILS UP X 2. BEDSIDE TABLE AND CALL LIGHT IS WITHIN REACH. BED ALARM IS ON. WILL ENDORSE TO THE NEXT SHIFT FOR VELMA. Addendum: 03/22/23 at 0636 by ROSE CROCKETT RN ERROR NOTES
--- NOTE | 2023-03-22 06:33 | NUR ---
HELD INSULIN REGULAR D/T PT BLOOD GLUCOSE OF 104.
[2023-03-22 06:35] LABS: BASOPHILS % (AUTO) 0.3 % (0.0-2.0); EOSINOPHILS % (AUTO) 0.9 % (0.0-6.0); HEMATOCRIT 37 % (39-51); HEMOGLOBIN 12.2 g/dL (13.5-17.5); LYMPHOCYTES # (AUTO) 1.7 K/uL (0.8-4.8); LYMPHOCYTES % (AUTO) 15.7 % (20.0-44.0); MEAN CORPUSCULAR HGB CONC 33 g/dl (31.0-36.0); MEAN CORPUSCULAR VOLUME 89 fL (80-96); MONOCYTES # (AUTO) 0.9 K/uL (0.1-1.30); MONOCYTES % (AUTO) 8.8 % (2.0-12.0); NEUTROPHILS # (AUTO) 7.9 K/uL (1.8-8.9); NEUTROPHILS % (AUTO) 74.3 % (43.0-81.0); PLATELET COUNT (AUTO) 171 K/uL (150-450); RED BLOOD CELL COUNT(AUTO) 4.16 MIL/uL (4.5-6.0); WHITE BLOOD COUNT (AUTO) 10.6 K/uL (4.3-11.0)
--- NOTE | 2023-03-22 06:36 | NUR ---
RN CLOSING NOTE PT AWAKE & RESTING COMFORTABLY IN BED. PT IS A/O X 4. RESPOSNIVE AND FOLLOWS VERBAL COMMAND. PT IS IN RA, W/ NO S&SX OF RESPIRATORY DISTRESS @ THIS TIME. PT IV PRESENT IS LEFT AC #18G, RUNNING NS @90MLS/HR, PATENT, INTACT AND FLUSHES WELL W/ NO S&SX OF INFILTRATION @ SITE NOTED. PT LEPIDOPTERIST IS IN PLACE WITH CURRENT READING OF SINUS RHYTHM, HR 79BPM. SAFETY MEASURES IS IN PLACE. BED IN LOWEST & LOCKED POSITION. SIDE RAILS UP X 2. BEDSIDE TABLE AND CALL LIGHT IS WITHIN REACH. BED ALARM IS ON. WILL ENDORSE TO THE NEXT SHIFT FOR VELMA.
[2023-03-22 06:47] LABS: CALCIUM, SERUM 8.8 mg/dL (8.5-10.1); CREATININE 1.5 mg/dL (0.6-1.3); MAGNESIUM 1.9 mg/dL (1.8-2.4); PHOSPHORUS 3.3 mg/dL (2.5-4.9); POTASSIUM 2.9 mmol/L (3.5-5.1); TOTAL PROTEIN, SERUM 7.8 g/dL (6.4-8.2)
--- NOTE | 2023-03-22 07:16 | NUR ---
ms rn received on bed, awake,alert,oriented x4,not in any form of distress, respirations even and unlabored,no sob noted, came in with bilateral lower extremities cellulitis, both elevated w/ pillows, denies pain, pt on iv atb now, no distress noted, will monitor patient.
[2023-03-22 08:00] VITALS: BP 126/73
[2023-03-22] MEDS ORDERED: VANCOMYCIN 1.25 GM in IV D5W 250 ML IV SCH (08:00)
[2023-03-22] MEDS: PANTOPRAZOLE 40 MG TABLET.DR PO SCH ×2 (08:42→17:31)
[2023-03-22] MEDS: LISINOPRIL (10MG) 10 MG TABLET PO SCH (08:42)
[2023-03-22] MEDS: ASPIRIN 81 MG TAB.CHEW PO SCH (08:43)
[2023-03-22] MEDS ORDERED: Medication Not On Formulary EA (Omega-3 Fatty Acids/Fish Oil (Fish Oil 1,000 Mg Capsule) PO SCH (09:00)
--- NOTE | 2023-03-22 09:00 | NUR ---
ms rn breakfast served,due meds given,tolerated well, was seen by dr. ileana orantes/ orders made and carried out.
[2023-03-22 10:18] LABS: THYROID STIMULATING HORMONE 0.567 uIU/mL (0.358-3.74)
[2023-03-22] MEDS: POTASSIUM CHLORIDE 20 MEQ TAB.PRT.SR PO SCH ×5 (10:35→15:54)
[2023-03-22 16:00] VITALS: BP 125/69
--- NOTE | 2023-03-22 17:59 | NUR ---
ms rn on bed, no distress noted, blood sugar within range,no coverage noted.
--- NOTE | 2023-03-22 19:00 | NUR ---
RN OPENING NOTE RECEIVED PT AWAKE IN BED. PT IS A/O X 4, ABLE TO MAKE NEEDS KNOWN. PT IS IN RA, TOLERATING WELL, BREATHING EVEN AND UNLABORED @ THIS TIME. PT IV PRESENT ON THE LEFT AC #18G SALINE LOCK, PATENT, INTACT AND FLUSHES WELL W/ NO S&SX OF INFILTRATION @ SITE NOTED. SAFETY MEASURE IS IN PLACE. BED IN LOWEST AND LOCKED POSITION. SIDE RAIL UP X 2. BEDSIDE TABLE AND CALL LIGHT IS EASY REACH. BED ALARM IS ON. WILL CONTINUE TO MONITOR PT ACCORDINGLY.
[2023-03-22 20:00] VITALS: BP 142/83
[2023-03-22] MEDS: ATORVASTATIN 40 MG TABLET PO SCH (21:10)
[2023-03-22] MEDS: MUPIROCIN OINT 2% 22 GM TUBE NS SCH (21:10)
--- NOTE | 2023-03-22 22:30 | NUR ---
BLOOD SUGAR W/IN RANGE. NO COVERAGE NEEDED.
[2023-03-23] VITALS: BP 139/84
[2023-03-23] MEDS: CEFEPIME 2 GM in IV D5W 100 ML IV SCH ×2 (00:06→12:06)
[2023-03-23 04:00] VITALS: BP 144/96
[2023-03-23 06:17] LABS: BASOPHILS % (AUTO) 0.3 % (0.0-2.0); EOSINOPHILS % (AUTO) 2.3 % (0.0-6.0); HEMATOCRIT 38 % (39-51); HEMOGLOBIN 12.4 g/dL (13.5-17.5); LYMPHOCYTES # (AUTO) 1.8 K/uL (0.8-4.8); LYMPHOCYTES % (AUTO) 20.7 % (20.0-44.0); MEAN CORPUSCULAR HGB CONC 33 g/dl (31.0-36.0); MEAN CORPUSCULAR VOLUME 89 fL (80-96); MONOCYTES # (AUTO) 0.7 K/uL (0.1-1.30); MONOCYTES % (AUTO) 8.6 % (2.0-12.0); NEUTROPHILS # (AUTO) 5.8 K/uL (1.8-8.9); NEUTROPHILS % (AUTO) 68.1 % (43.0-81.0); PLATELET COUNT (AUTO) 214 K/uL (150-450); WHITE BLOOD COUNT (AUTO) 8.5 K/uL (4.3-11.0)
[2023-03-23] MEDS: BLOOD SUGAR DIAGNOSTIC 1 EACH STRIP IN SCH ×4 (06:32→22:01)
[2023-03-23] MEDS: INSULIN REGULAR, HUMAN 100 UNIT/ML 3 ML VIAL SQ PRN ×4 (06:33→22:01)
--- NOTE | 2023-03-23 06:33 | NUR ---
BLOOD SUGAR W/IN RANGE @ THIS TIME. NO COVERAGE NEEDED.
--- NOTE | 2023-03-23 06:34 | NUR ---
RN CLOSING NOTE PT AWAKE & RESTING COMFORTABLY IN BED. PT IS A/O X 4, RESPOSNIVE AND FOLLOWS VERBAL COMMAND. PT IS IN RA, W/ NO S&SX OF RESPIRATORY DISTRESS @ THIS TIME. PT IV PRESENT ON THE LEFT AC #18G SALINE LOCK, PATENT, INTACT AND FLUSHES WELL W/ NO S&SX OF INFILTRATION @ SITE NOTED. SAFETY MEASURE IS IN PLACE. BED IN LOWEST AND LOCKED POSITION. SIDERAIL UP X 2. BEDSIDE TABLE AND CALL LIGHT IS EASY REACH. BED ALARM IS ON. WILL ENDORSE PT TO THE NEXT SHIFT FOR VELMA.
[2023-03-23 07:00] LABS: BILIRUBIN,TOTAL 0.8 mg/dL (0.2-1.0); CALCIUM, SERUM 8.9 mg/dL (8.5-10.1); CREATININE 1.2 mg/dL (0.6-1.3); MAGNESIUM 1.7 mg/dL (1.8-2.4); POTASSIUM 3.2 mmol/L (3.5-5.1); TOTAL PROTEIN, SERUM 8.1 g/dL (6.4-8.2)
--- NOTE | 2023-03-23 07:20 | NUR ---
RN OPENING NOTE RECEIVED PATIENT IN BED , AWAKE, A/O X4, VERBALLY RESPONSIVE AND ABLE TO MAKE NEEDS KNOWN. NO SIGNS OF ACUTE DISTRESS NOTED. ON ROOM AIR, TOLERATING WELL. NO SOB NOTED, BREATHING EVEN AND UNLABORED. DENIES ANY PAIN AT THIS TIME. ON SUPERVISOR CLEANING AND ANNEALING SHOWING SINUS TACH, HR @103. WITH IV ACCESS ON LEFT AC #18G, INTACT AND PATENT, SALINE LOCKED. SAFETY MEASURE IN PLACE. BED IN LOW AND LOCKED POSITION, SIDE RAILS UP X2, CALL LIGHT PLACED WITHIN EASY REACH. WILL CONTINUE TO MONITOR PATIENT.
[2023-03-23] MEDS: VANCOMYCIN 1 GM in IV D5W 250ml IV SCH ×2 (07:57→20:16)
[2023-03-23 08:00] VITALS: BP 134/82
[2023-03-23] MEDS: ASPIRIN 81 MG TAB.CHEW PO SCH (08:20)
[2023-03-23] MEDS: POTASSIUM CHLORIDE 20 MEQ TAB.PRT.SR PO SCH ×3 (08:20→10:23)
[2023-03-23] MEDS: Magnesium 1GM/D5W 100ML PREMIX 100 ML IV SCH ×2 (08:20→09:21)
[2023-03-23] MEDS: ACETAMINOPHEN 325 MG TABLET PO PRN (08:20)
[2023-03-23] MEDS: PANTOPRAZOLE 40 MG TABLET.DR PO SCH ×2 (08:20→16:05)
[2023-03-23] MEDS: LISINOPRIL (10MG) 10 MG TABLET PO SCH (08:20)
[2023-03-23] MEDS: MUPIROCIN OINT 2% 22 GM TUBE NS SCH ×2 (08:59→21:11)
[2023-03-23 12:00] VITALS: BP 130/78
[2023-03-23 16:00] VITALS: BP 133/89
--- NOTE | 2023-03-23 18:42 | NUR ---
RN CLOSING NOTE PATIENT IN BED , AWAKE, A/O X4, VERBALLY RESPONSIVE AND ABLE TO MAKE NEEDS KNOWN. NO SIGNS OF ACUTE DISTRESS NOTED. REMAINS STABLE ON ROOM AIR, NO SOB NOTED, BREATHING EVEN AND UNLABORED. WITH IV ACCESS ON LEFT AC #18G, INTACT AND PATENT, SALINE LOCKED. SAFETY MEASURE MAINTAINED. BED IN LOW AND LOCKED POSITION, SIDE RAILS UP X2, CALL LIGHT PLACED WITHIN EASY REACH. WILL ENDORSE TO NEXT SHIFT FOR CONTINUITY OF CARE.
--- NOTE | 2023-03-23 19:45 | NUR ---
MS RN Opening Note Received patient in bed; awake, alert and oriented x 4. On room air; tolerating well. Breathing even and nonlabored. Not in any form of respiratory or cardiac distress. No c/o any pain or discomfort. With IV access on left upper arm 22g: patent, intact and saline locked. Able to verbalize needs. Fall and safety precautions implemented: call light and table within reach, side rails up x 3, bed in lowest locked position. Will continue to monitor throughout shift.
[2023-03-23] MEDS: HOME MED MISCELLANEOUS PO SCH (19:55)
[2023-03-23 20:00] VITALS: BP 138/76
[2023-03-23] MEDS: ATORVASTATIN 40 MG TABLET PO SCH (21:13)
[2023-03-23] MEDS ORDERED: TEMAZEPAM 15 MG CAPSULE PO PRN (22:00)
--- NOTE | 2023-03-23 22:01 | NUR ---
RN Note Blood sugar checked - 113 mg/dl. No regular insulin coverage given per sliding scale. Will continue to monitor.
[2023-03-24] VITALS: BP 107/64
[2023-03-24] MEDS: CEFEPIME 2 GM in IV D5W 100 ML IV SCH ×2 (01:57→14:52)
[2023-03-24] MEDS: BLOOD SUGAR DIAGNOSTIC 1 EACH STRIP IN SCH ×4 (05:52→21:22)
[2023-03-24] MEDS: INSULIN REGULAR, HUMAN 100 UNIT/ML 3 ML VIAL SQ PRN ×2 (05:53→18:08)
--- NOTE | 2023-03-24 05:53 | NUR ---
RN Note Blood sugar checked - 120 mg/dl; within normal limits. No regular insulin coverage given per sliding scale. Will continue to monitor.
[2023-03-24 06:12] LABS: BASOPHILS % (AUTO) 0.5 % (0.0-2.0); EOSINOPHILS % (AUTO) 2.6 % (0.0-6.0); HEMATOCRIT 38 % (39-51); HEMOGLOBIN 12.5 g/dL (13.5-17.5); LYMPHOCYTES # (AUTO) 1.5 K/uL (0.8-4.8); MEAN CORPUSCULAR HGB CONC 33 g/dl (31.0-36.0); MEAN CORPUSCULAR VOLUME 90 fL (80-96); MONOCYTES # (AUTO) 0.7 K/uL (0.1-1.30); MONOCYTES % (AUTO) 9.5 % (2.0-12.0); NEUTROPHILS # (AUTO) 4.5 K/uL (1.8-8.9); NEUTROPHILS % (AUTO) 65.4 % (43.0-81.0); PLATELET COUNT (AUTO) 238 K/uL (150-450); RED BLOOD CELL COUNT(AUTO) 4.22 MIL/uL (4.5-6.0); WHITE BLOOD COUNT (AUTO) 6.9 K/uL (4.3-11.0)
[2023-03-24 06:22] LABS: CREATININE 1.1 mg/dL (0.6-1.3); POTASSIUM 3.9 mmol/L (3.5-5.1)
--- NOTE | 2023-03-24 06:50 | NUR ---
MS RN Closing Note Patient in bed; awake, a/o x 4. Stable on room air. In no acute distress.. Denies any pain or discomfort. With IV access on left upper arm 22g: patent, intact and saline locked. All needs met. All due meds given as ordered. Fall and safety precautions maintained. Endorsed to incoming nurse for continuity of care
--- NOTE | 2023-03-24 07:54 | NUR ---
MS RN OPENING NOTE (DAY SHIFT) RECEIVED PATIENT IN BED , AWAKE, A/O X4, VERBALLY RESPONSIVE AND ABLE TO MAKE NEEDS KNOWN. NO SIGNS OF ACUTE DISTRESS NOTED. ON ROOM AIR, TOLERATING WELL. NO SOB NOTED, BREATHING EVEN AND UNLABORED. DENIES ANY PAIN AT THIS TIME. PATIENT HAS IV ACCESS ON LEFT AC #18G, INTACT AND PATENT, SALINE LOCKED. SAFETY MEASURES ARE IN PLACE. BED IS IN LOW AND LOCKED POSITION, SIDE RAILS UP X 2, CALL LIGHT PLACED WITHIN EASY REACH. WILL CONTINUE TO CARE FOR AND MONITOR PATIENT PER HOSPITALIST'S POC.
[2023-03-24 08:41] VITALS: BP 150/92
[2023-03-24] MEDS: VANCOMYCIN 1.25 GM in IV D5W 250 ML IV SCH ×2 (09:02→20:23)
[2023-03-24] MEDS: HOME MED MISCELLANEOUS PO SCH (09:03)
[2023-03-24] MEDS: PANTOPRAZOLE 40 MG TABLET.DR PO SCH ×2 (09:03→18:07)
[2023-03-24] MEDS: LISINOPRIL (10MG) 10 MG TABLET PO SCH (09:03)
[2023-03-24] MEDS: ASPIRIN 81 MG TAB.CHEW PO SCH (09:03)
[2023-03-24] MEDS: MUPIROCIN OINT 2% 22 GM TUBE NS SCH ×2 (09:07→20:24)
[2023-03-24] MEDS: ACETAMINOPHEN 325 MG TABLET PO PRN (09:08)
--- NOTE | 2023-03-24 10:42 | NUR ---
WOUND CARE CONSULT: PT PRESENTS WITH SWELLING AND REDNESS TO LEFT LOWERLEG WITH INTACT BLISTERS, PRESENT ON ADMISSION. DR ZALDIVAR CALLED FOR DPM CONSULT. DISCUSSED SKIN PROTECTION WITH PT AND NURSING STAFF. MD IN AGREEMENT WITH PLAN OF CARE.
[2023-03-24 16:02] VITALS: BP 147/88
--- NOTE | 2023-03-24 18:56 | NUR ---
MS RN CLOSING NOTE (DAY SHIFT) PATIENT IN BED , AWAKE, A/O X4, VERBALLY RESPONSIVE AND ABLE TO MAKE NEEDS KNOWN. NO SIGNS OF ACUTE DISTRESS NOTED. REMAINS STABLE ON ROOM AIR, NO SOB NOTED, BREATHING EVEN AND UNLABORED. WITH IV ACCESS ON LEFT AC #18G, INTACT AND PATENT, SALINE LOCKED. SAFETY MEASURES MAINTAINED. BED IN LOW AND LOCKED POSITION, SIDE RAILS UP X 2, CALL LIGHT PLACED WITHIN EASY REACH. BED ALARM ON. WILL ENDORSE TO COORDINATOR OF PLACEMENT NURSE, PIERCE AGUILAR, FOR CONTINUITY OF CARE.
--- NOTE | 2023-03-24 19:15 | NUR ---
MS RN OPENING NOTE PATIENT IS RESTING IN BED. HE IS ALERT AND ORIENTED, AO X 4. PT IS ON RA, TOLERATED WELL. NO S/S OF DISTRESS OR SOB. PT HAS IV ACCESS AT HIS L UA, # 22G, SL. FLUSHED WELL WITH NS. IV SITE IS PATENT AND INTACT. PT DENIES OF HAVING PAIN AT THIS MOMENT. SAFETY MEASURES ARE IN PLACED: BED IN LOWEST AND LOCKED POSITION; SIDE RAILS UP X 2; BED ALARM IS SET; CALL LIGHT AND TABLE ARE WITHIN REACH. WILL CONTINUE MONITORING THE PT AND PROVIDE THE CARE PT NEEDS.
[2023-03-24] MEDS: ATORVASTATIN 40 MG TABLET PO SCH (21:33)
[2023-03-24] MEDS: ONDANSETRON HCL/PF 4 MG/2 ML VIAL IVP PRN (21:59)
--- NOTE | 2023-03-24 22:01 | NUR ---
MS RN NOTE PT VOMITED OUT LARGE AMOUNT OF EMESIS. PRN IV MEDICATION, ZOFRAN, ADMINISTERED PER MD ORDER.
[2023-03-24 22:35] VITALS: BP 142/89
[2023-03-25] MEDS: CEFEPIME 2 GM in IV D5W 100 ML IV SCH ×2 (00:31→12:55)
[2023-03-25] MEDS: BLOOD SUGAR DIAGNOSTIC 1 EACH STRIP IN SCH ×3 (06:32→17:12)
[2023-03-25 07:00] VITALS: BP 149/89
[2023-03-25 07:24] LABS: BASOPHILS % (AUTO) 0.5 % (0.0-2.0); EOSINOPHILS % (AUTO) 2.4 % (0.0-6.0); HEMATOCRIT 40 % (39-51); HEMOGLOBIN 13.2 g/dL (13.5-17.5); LYMPHOCYTES # (AUTO) 1.7 K/uL (0.8-4.8); LYMPHOCYTES % (AUTO) 20.1 % (20.0-44.0); MEAN CORPUSCULAR HGB CONC 33 g/dl (31.0-36.0); MEAN CORPUSCULAR VOLUME 90 fL (80-96); MONOCYTES # (AUTO) 0.6 K/uL (0.1-1.30); MONOCYTES % (AUTO) 7.2 % (2.0-12.0); NEUTROPHILS # (AUTO) 5.8 K/uL (1.8-8.9); NEUTROPHILS % (AUTO) 69.8 % (43.0-81.0); PLATELET COUNT (AUTO) 287 K/uL (150-450); RED BLOOD CELL COUNT(AUTO) 4.44 MIL/uL (4.5-6.0); WHITE BLOOD COUNT (AUTO) 8.3 K/uL (4.3-11.0)
--- NOTE | 2023-03-25 07:30 | NUR ---
MS RN CLOSING NOTE PATIENT IS RESTING IN BED. HE IS ALERT AND ORIENTED, AO X 4. PT IS ON RA, TOLERATED WELL. NO S/S OF DISTRESS OR SOB. PT HAS IV ACCESS AT HIS L UA, # 22G, SL. FLUSHED WELL WITH NS. IV SITE IS PATENT AND INTACT. PT DENIES OF HAVING PAIN AT THIS MOMENT. SAFETY MEASURES ARE IN PLACED: BED IN LOWEST AND LOCKED POSITION; SIDE RAILS UP X 2; BED ALARM IS SET; CALL LIGHT AND TABLE ARE WITHIN REACH. ENDORSED NEXT SHIFT NURSE FOR CONTINUING PT CARE.
--- NOTE | 2023-03-25 07:53 | NUR ---
MS RN OPENING NOTE (DAY SHIFT) RECEIVED PATIENT IN BED , AWAKE, A/O X4, VERBALLY RESPONSIVE AND ABLE TO MAKE NEEDS KNOWN. NO SIGNS OF ACUTE DISTRESS NOTED. ON ROOM AIR, TOLERATING WELL. NO SOB NOTED, BREATHING EVEN AND UNLABORED. DENIES ANY PAIN AT THIS TIME. PATIENT HAS IV ACCESS ON LEFT AC #18G, INTACT AND PATENT, SALINE LOCKED. SAFETY MEASURES ARE IN PLACE. BED IS IN LOW AND LOCKED POSITION, SIDE RAILS UP X 2, CALL LIGHT PLACED WITHIN EASY REACH. PATIENT VOIDING CLEAR YELLOW URINE IN URINAL. WILL CONTINUE TO CARE FOR AND MONITOR PATIENT PER HOSPITALIST'S POC.
[2023-03-25 07:56] LABS: POTASSIUM 4.4 mmol/L (3.5-5.1)
[2023-03-25] MEDS: VANCOMYCIN 1.25 GM in IV D5W 250 ML IV SCH (08:30)
[2023-03-25] MEDS: MUPIROCIN OINT 2% 22 GM TUBE NS SCH (08:52)
[2023-03-25] MEDS: ASPIRIN 81 MG TAB.CHEW PO SCH (08:52)
[2023-03-25] MEDS: HOME MED MISCELLANEOUS PO SCH (08:52)
[2023-03-25] MEDS: LISINOPRIL (10MG) 10 MG TABLET PO SCH (08:55)
[2023-03-25] MEDS: PANTOPRAZOLE 40 MG TABLET.DR PO SCH ×2 (08:56→17:11)
[2023-03-25 10:07] LABS: *SPE A/G RATIO 0.5 (0.7-1.7); *SPE ALPHA-1-GLOBULIN 0.5 g/dL (0.0-0.4); *SPE ALPHA-2-GLOBULIN 1.1 g/dL (0.4-1.0); *SPE BETA GLOBULIN 1.5 g/dL (0.7-1.3); *SPE M-SPIKE Not Observed g/dL (Not Observed)
[2023-03-25] MEDS: INSULIN REGULAR, HUMAN 100 UNIT/ML 3 ML VIAL SQ PRN ×2 (12:06→17:12)
[2023-03-25] MEDS ORDERED: LACT1CAP72 PO (12:24)
[2023-03-25 16:06] VITALS: BP 145/95
--- NOTE | 2023-03-25 18:21 | NUR ---
MS FLOOR FRAMER TO HOME NOTE Patient tolerated well the removal of the # 18 gauge PIV catheter fully intact from his left upper arm without any signs of complications of IV therapy. Patient demonstrated understanding of his home care discharge instructions using the teach back method in his own words. Patient departed the [address], via wheel chair to [facility] for his home at 18:15 hours.
--- NOTE | 2023-03-26 10:51 | NUR ---
pt was discharged yesterday. Pt called this morning to check if atb was prescribed. Dr. Crum contacted and new order received to call in pt's preferred pharmacy for new Rx: Keflex 500 mg tid x10 days. Pharmacy called and pt informed about new order as well.
== END 2023-03-25 18:20 | disposition home or self-care (01) | DRG 383 ==
LOC: ER 07:06 → TELE 11:52 → MED 03-24 05:41
PROVIDERS: ADMIT Nurse Practitioner Acute Care; ATTEND Internal Medicine
DX: L03.115 Cellulitis of right lower limb (principal); N17.0 Acute kidney failure with tubular necrosis; I50.23 Acute on chronic systolic (congestive) heart failure; E44.0 Moderate protein-calorie malnutrition; E66.9 Obesity, unspecified; D72.829 Elevated white blood cell count, unspecified; E11.22 Type 2 diabetes mellitus with diabetic chronic kidney disease; E78.5 Hyperlipidemia, unspecified; I13.0 Hypertensive heart and chronic kidney disease with heart failure and stage 1 through stage 4 chronic kidney disease, or unspecified chronic kidney disease; E86.1 Hypovolemia; S91.104A Unspecified open wound of right lesser toe(s) without damage to nail, initial encounter; L03.116 Cellulitis of left lower limb; Z95.1 Presence of aortocoronary bypass graft; Z79.82 Long term (current) use of aspirin; I25.10 Atherosclerotic heart disease of native coronary artery without angina pectoris; Z68.36 Body mass index [BMI] 36.0-36.9, adult; Z71.3 Dietary counseling and surveillance; E87.6 Hypokalemia; I87.8 Other specified disorders of veins; M79.662 Pain in left lower leg; S80.822A Blister (nonthermal), left lower leg, initial encounter; X58.XXXA Exposure to other specified factors, initial encounter; Y93.9 Activity, unspecified; Y92.009 Unspecified place in unspecified non-institutional (private) residence as the place of occurrence of the external cause; F19.10 Other psychoactive substance abuse, uncomplicated; N18.9 Chronic kidney disease, unspecified
CPT/HCPCS: 36415; 71045-TC; 76770-TC; 80048-TC; 80053-TC; 80061-TC; 80076-TC; 80202-TC; 82962-TC; 83735-TC; 83880; 84100-TC; 84155; 84165; 84439-TC; 84443-TC; 84484-TC; 85025-TC; 85652-TC; 85730-TC; 87040-TC; 87081-TC; 93307-TC; 93970-TC; 97116-TC; 97530-TC; A4223; G0378; J0692; J1815; J2405; J3370; J3475; J3480; J7030; J7040; J7050; J7060

== ENCOUNTER 2024-07-30 07:31 | Inpatient (IN) | payer OTHER ==
[~2024-07-30] VITALS: Ht 185.4 cm; Wt 100.2 kg
[~2024-07-30 07:31] MED LIST changes: +ACET-2605 PO; +ASPI-1169 PO; +BICT1TAB PO; -DOLU50TA PO; -DOXY-326 PO; -EMTR1TAB17 PO; -FERR-68 PO; +LACT1CAP72 PO; +LISI10TA29 PO; -METO25TA20 PO; +OMEG1CAP PO; +OMEP40CA21 PO; +SEMA1PEN SQ; -SULF1TAB47 PO
[2024-07-30 08:04] LABS: BASOPHILS % (AUTO) 0.1 % (0.0-2.0); EOSINOPHILS % (AUTO) 0.4 % (0.0-6.0); HEMATOCRIT 43 % (39-51); HEMOGLOBIN 14.4 g/dL (13.5-17.5); LYMPHOCYTES # (AUTO) 0.8 K/uL (0.8-4.8); LYMPHOCYTES % (AUTO) 8.1 % (20.0-44.0); MEAN CORPUSCULAR HEMOGLOBIN 30 PG (26.0-33.0); MEAN CORPUSCULAR HGB CONC 34 g/dl (31.0-36.0); MEAN CORPUSCULAR VOLUME 89 fL (80-96); MONOCYTES % (AUTO) 9.8 % (2.0-12.0); NEUTROPHILS # (AUTO) 8.6 K/uL (1.8-8.9); NEUTROPHILS % (AUTO) 81.6 % (43.0-81.0); PLATELET COUNT (AUTO) 176 K/uL (150-450); RED BLOOD CELL COUNT(AUTO) 4.82 MIL/uL (4.5-6.0); RED CELL DISTRIBUTION WIDTH 14.6 % (11.5-15.0); WHITE BLOOD COUNT (AUTO) 10.5 K/uL (4.3-11.0)
[2024-07-30] MEDS: PIPERACILLIN /TAZOBACTAM 3.375 G in IV D5W 50 ML IV ONE (08:05)
[2024-07-30 08:17] LABS: INR 1.04 (0.91-1.10)
[2024-07-30] MEDS: VANCOMYCIN 1 GM in IV D5W 250 ML IV ONE (08:21)
[2024-07-30 08:27] LABS: ALANINE AMINOTRANSFERASE 32 U/L (12-78); ALBUMIN 2.7 g/dL (3.4-5.0); ALKALINE PHOSPHATASE 98 U/L (46-116); ASPARTATE AMINOTRANSFERASE 35 U/L (15-37); BILIRUBIN,DIRECT 0.4 mg/dL (0.0-0.2); BILIRUBIN,TOTAL 1.3 mg/dL (0.2-1.0); CALCIUM, SERUM 9.1 mg/dL (8.5-10.1); CARBON DIOXIDE 26 mmol/L (21-32); CHLORIDE 97 mmol/L (98-107); CREATININE 1.6 mg/dL (0.6-1.3); GLUCOSE 115 mg/dL (74-106); POTASSIUM 3.1 mmol/L (3.5-5.1); SODIUM SERUM 134 mmol/L (136-145); TOTAL PROTEIN, SERUM 9.3 g/dL (6.4-8.2); UREA NITROGEN, BLOOD 22 mg/dL (7-18)
[2024-07-30] MEDS ORDERED: CARV3.122 PO (08:38)
[2024-07-30] MEDS ORDERED: WEGOVY SQ (08:38)
[2024-07-30] MEDS ORDERED: POTA20TA83 PO (08:38)
[2024-07-30] MEDS ORDERED: OMEP20CA15 PO (08:38)
[2024-07-30] MEDS ORDERED: GABA300C PO (08:38)
[2024-07-30] MEDS ORDERED: ESCI10TA PO (08:38)
[2024-07-30] MEDS ORDERED: FURO20TA4 PO (08:38)
[2024-07-30] MEDS ORDERED: LISI20TA30 PO (08:38)
[2024-07-30 08:51] LABS: LACTIC ACID 2.4 mmol/L (0.4-2.0)
[2024-07-30] MEDS ORDERED: POTASSIUM CL. PREMIX PERIPHER. 100 ML ONE (10:02)
[2024-07-30] MEDS: POTASSIUM CL. PREMIX PERIPHER. 50 ML IV SCH (10:07)
[2024-07-30 10:19] LABS: ALCOHOL, BLOOD < 3 mg/dL (0-10); MAGNESIUM 2.3 mg/dL (1.8-2.4)
[2024-07-30 11:30] VITALS: BP 129/79; TEMP 98.1; O2SAT 96
[2024-07-30] MEDS ORDERED: ONDANSETRON HCL/PF 4 MG/2 ML VIAL IVP PRN (12:30)
[2024-07-30] MEDS ORDERED: ACETAMINOPHEN 325 MG TABLET PO PRN (12:30)
[2024-07-30] MEDS ORDERED: Z GUARD REMEDY 4 OZ OINT TP PRN (12:30)
[2024-07-30] MEDS ORDERED: MAG HYDROX/AL HYDROX/SIMETH 30 ML UDC PO PRN (12:30)
[2024-07-30] MEDS ORDERED: MAGNESIUM HYDROXIDE 30 ML UDC PO PRN (12:30)
[2024-07-30] MEDS ORDERED: ZOLPIDEM TARTRATE 5 MG TABLET PO PRN (12:30)
[2024-07-30] MEDS: VANCOMYCIN 1 GM in IV D5W 250ml IV ONE (14:12)
[2024-07-30] MEDS: ZOSYN IVPB 3.375 G in IV D5W 50ml IV SCH (14:59)
[2024-07-30 16:00] VITALS: BP_SYST 115; BP_SYST 129; BP_DIAS 61; BP_DIAS 79; TEMP 98.1; TEMP 98.2; O2SAT 93; O2SAT 96
[2024-07-30] MEDS ORDERED: INSULIN REGULAR, HUMAN 100 UNIT/ML 3 ML VIAL SQ PRN (17:00)
[2024-07-30] MEDS ORDERED: DEXTROSE 50%-WATER 50 ML DISP.SYRIN IV PRN (17:00)
[2024-07-30] MEDS: BLOOD SUGAR DIAGNOSTIC 1 EACH STRIP VI SCH (17:30)
[2024-07-30] MEDS: CARVEDILOL 3.125 MG TABLET PO SCH (18:34)
[2024-07-30] MEDS: GABAPENTIN 300 MG CAPSULE PO SCH (18:35)
[2024-07-30] MEDS: IV NS 0.9% 1,000 ML IV PRN (18:36)
[2024-07-30 20:00] VITALS: BP_SYST 106; BP_SYST 128; BP_DIAS 65; BP_DIAS 66; TEMP 98.2; TEMP 98.5; O2SAT 97; O2SAT 99
[2024-07-30] MEDS: ATORVASTATIN 40 MG TABLET PO SCH (21:17)
[2024-07-30] MEDS: HEPARIN SODIUM, PORCINE 5000 UNITS/1 ML VIAL SQ SCH (21:18)
[2024-07-31] MEDS: VANCOMYCIN 1 GM in IV D5W 250ml IV SCH (02:08)
[2024-07-31 06:09] LABS: BASOPHILS % (AUTO) 0.2 % (0.0-2.0); EOSINOPHILS % (AUTO) 0.1 % (0.0-6.0); HEMATOCRIT 36 % (39-51); HEMOGLOBIN 12.3 g/dL (13.5-17.5); LYMPHOCYTES % (AUTO) 9.4 % (20.0-44.0); MEAN CORPUSCULAR HEMOGLOBIN 30 PG (26.0-33.0); MEAN CORPUSCULAR HGB CONC 34 g/dl (31.0-36.0); MEAN CORPUSCULAR VOLUME 87 fL (80-96); MONOCYTES # (AUTO) 1.2 K/uL (0.1-1.30); MONOCYTES % (AUTO) 12.2 % (2.0-12.0); NEUTROPHILS % (AUTO) 78.1 % (43.0-81.0); PLATELET COUNT (AUTO) 133 K/uL (150-450); RED BLOOD CELL COUNT(AUTO) 4.17 MIL/uL (4.5-6.0); RED CELL DISTRIBUTION WIDTH 14.7 % (11.5-15.0); WHITE BLOOD COUNT (AUTO) 10.2 K/uL (4.3-11.0)
[2024-07-31 06:24] LABS: CALCIUM, SERUM 8.8 mg/dL (8.5-10.1); CREATININE 1.2 mg/dL (0.6-1.3); MAGNESIUM 2.3 mg/dL (1.8-2.4); PHOSPHORUS 2.9 mg/dL (2.5-4.9); POTASSIUM 2.8 mmol/L (3.5-5.1); THYROID STIMULATING HORMONE 1.39 uIU/mL (0.358-3.74)
[2024-07-31] MEDS: INSULIN REGULAR, HUMAN 100 UNIT/ML 3 ML VIAL SQ PRN (06:39)
[2024-07-31 08:00] VITALS: BP 108/71; TEMP 99.5; O2SAT 99
[2024-07-31] MEDS: ASPIRIN 81 MG TAB.CHEW PO SCH (09:40)
[2024-07-31] MEDS: POTASSIUM CHLORIDE 20 MEQ TAB.PRT.SR PO SCH ×2 (09:40→12:14)
[2024-07-31] MEDS: ESCITALOPRAM OXALATE (10 MG) 10 MG TABLET PO SCH (09:41)
[2024-07-31] MEDS: LISINOPRIL (20MG) 20 MG TABLET PO SCH (09:41)
[2024-07-31] MEDS: PANTOPRAZOLE 40 MG TABLET.DR PO SCH (09:44)
[2024-07-31] MEDS: VANCOMYCIN HCL 1.25 GM in IV D5W 250 ML IV SCH (13:53)
[2024-07-31] MEDS: BIKTARVY 50-200-25 MG TABLET NF PO SCH (15:43)
[2024-07-31 16:00] VITALS: BP 109/67; TEMP 99.7; O2SAT 96
[2024-07-31 20:00] VITALS: BP 108/59; TEMP 98.6; O2SAT 96
[2024-08-01 06:28] LABS: BASOPHILS % (AUTO) 0.4 % (0.0-2.0); EOSINOPHILS # (AUTO) 0.1 K/uL (0.0-0.7); EOSINOPHILS % (AUTO) 0.5 % (0.0-6.0); HEMATOCRIT 35 % (39-51); HEMOGLOBIN 11.8 g/dL (13.5-17.5); LYMPHOCYTES # (AUTO) 1.3 K/uL (0.8-4.8); LYMPHOCYTES % (AUTO) 13.4 % (20.0-44.0); MEAN CORPUSCULAR HEMOGLOBIN 30 PG (26.0-33.0); MEAN CORPUSCULAR HGB CONC 34 g/dl (31.0-36.0); MEAN CORPUSCULAR VOLUME 88 fL (80-96); MONOCYTES # (AUTO) 1.3 K/uL (0.1-1.30); MONOCYTES % (AUTO) 12.7 % (2.0-12.0); NEUTROPHILS # (AUTO) 7.2 K/uL (1.8-8.9); PLATELET COUNT (AUTO) 137 K/uL (150-450); RED BLOOD CELL COUNT(AUTO) 3.91 MIL/uL (4.5-6.0); RED CELL DISTRIBUTION WIDTH 14.7 % (11.5-15.0); WHITE BLOOD COUNT (AUTO) 9.9 K/uL (4.3-11.0)
[2024-08-01 07:03] LABS: CALCIUM, SERUM 8.2 mg/dL (8.5-10.1); CREATININE 1.1 mg/dL (0.6-1.3); MAGNESIUM 2.3 mg/dL (1.8-2.4); PHOSPHORUS 3.1 mg/dL (2.5-4.9); POTASSIUM 3.4 mmol/L (3.5-5.1)
[2024-08-01 08:00] VITALS: BP 128/79; TEMP 98.8; O2SAT 93
[2024-08-01] MEDS: POTASSIUM CHLORIDE 20 MEQ TAB.PRT.SR PO SCH (10:32)
[2024-08-01 16:00] VITALS: BP 122/69; TEMP 98.6; O2SAT 95
[2024-08-01 20:00] VITALS: BP 135/76; TEMP 98.2; O2SAT 98
[2024-08-02 06:38] LABS: BASOPHILS % (AUTO) 0.3 % (0.0-2.0); EOSINOPHILS # (AUTO) 0.1 K/uL (0.0-0.7); HEMATOCRIT 36 % (39-51); HEMOGLOBIN 11.9 g/dL (13.5-17.5); LYMPHOCYTES # (AUTO) 1.4 K/uL (0.8-4.8); LYMPHOCYTES % (AUTO) 14.5 % (20.0-44.0); MEAN CORPUSCULAR HEMOGLOBIN 30 PG (26.0-33.0); MEAN CORPUSCULAR HGB CONC 33 g/dl (31.0-36.0); MEAN CORPUSCULAR VOLUME 89 fL (80-96); MONOCYTES # (AUTO) 1.2 K/uL (0.1-1.30); MONOCYTES % (AUTO) 12.6 % (2.0-12.0); NEUTROPHILS # (AUTO) 6.9 K/uL (1.8-8.9); NEUTROPHILS % (AUTO) 71.6 % (43.0-81.0); PLATELET COUNT (AUTO) 184 K/uL (150-450); RED BLOOD CELL COUNT(AUTO) 4.04 MIL/uL (4.5-6.0); RED CELL DISTRIBUTION WIDTH 14.6 % (11.5-15.0); WHITE BLOOD COUNT (AUTO) 9.7 K/uL (4.3-11.0)
[2024-08-02 06:48] LABS: CALCIUM, SERUM 8.6 mg/dL (8.5-10.1); MAGNESIUM 2.1 mg/dL (1.8-2.4); PHOSPHORUS 3.8 mg/dL (2.5-4.9); POTASSIUM 3.6 mmol/L (3.5-5.1)
[2024-08-02 08:26] VITALS: BP 115/75; TEMP 98.3; O2SAT 92
[2024-08-02 16:02] VITALS: BP 125/71; TEMP 99.2; O2SAT 96
[2024-08-02 20:00] VITALS: BP 125/59; TEMP 98.2; TEMP 98.5; O2SAT 92; O2SAT 96
[2024-08-03 06:16] LABS: BASOPHILS # (AUTO) 0.1 K/uL (0.0-0.2); BASOPHILS % (AUTO) 0.5 % (0.0-2.0); EOSINOPHILS # (AUTO) 0.1 K/uL (0.0-0.7); EOSINOPHILS % (AUTO) 1.4 % (0.0-6.0); HEMATOCRIT 35 % (39-51); HEMOGLOBIN 11.8 g/dL (13.5-17.5); LYMPHOCYTES # (AUTO) 1.5 K/uL (0.8-4.8); LYMPHOCYTES % (AUTO) 15.7 % (20.0-44.0); MEAN CORPUSCULAR HEMOGLOBIN 30 PG (26.0-33.0); MEAN CORPUSCULAR HGB CONC 34 g/dl (31.0-36.0); MEAN CORPUSCULAR VOLUME 89 fL (80-96); MONOCYTES # (AUTO) 1.1 K/uL (0.1-1.30); MONOCYTES % (AUTO) 10.9 % (2.0-12.0); NEUTROPHILS # (AUTO) 6.9 K/uL (1.8-8.9); NEUTROPHILS % (AUTO) 71.5 % (43.0-81.0); PLATELET COUNT (AUTO) 232 K/uL (150-450); RED BLOOD CELL COUNT(AUTO) 3.96 MIL/uL (4.5-6.0); RED CELL DISTRIBUTION WIDTH 15.1 % (11.5-15.0); WHITE BLOOD COUNT (AUTO) 9.7 K/uL (4.3-11.0)
[2024-08-03 06:51] LABS: CALCIUM, SERUM 8.9 mg/dL (8.5-10.1); MAGNESIUM 2.3 mg/dL (1.8-2.4); PHOSPHORUS 3.4 mg/dL (2.5-4.9); POTASSIUM 3.9 mmol/L (3.5-5.1)
[2024-08-03 08:00] VITALS: BP 134/88; TEMP 99.1; O2SAT 94
[2024-08-03] MEDS: VANCOMYCIN HCL 1.25 GM in IV D5W 250 ML IV SCH (09:38)
[2024-08-03 16:00] VITALS: BP 114/72; TEMP 98.4; O2SAT 98
[2024-08-04 08:00] VITALS: BP 134/90; TEMP 97.9; O2SAT 96
[2024-08-04 09:19] VITALS: BP 134/90
[2024-08-04 09:21] LABS: BASOPHILS # (AUTO) 0.1 K/uL (0.0-0.2); BASOPHILS % (AUTO) 0.5 % (0.0-2.0); EOSINOPHILS # (AUTO) 0.1 K/uL (0.0-0.7); EOSINOPHILS % (AUTO) 1.2 % (0.0-6.0); HEMATOCRIT 36 % (39-51); LYMPHOCYTES # (AUTO) 1.6 K/uL (0.8-4.8); LYMPHOCYTES % (AUTO) 13.7 % (20.0-44.0); MEAN CORPUSCULAR HEMOGLOBIN 30 PG (26.0-33.0); MEAN CORPUSCULAR HGB CONC 33 g/dl (31.0-36.0); MEAN CORPUSCULAR VOLUME 90 fL (80-96); MONOCYTES # (AUTO) 0.8 K/uL (0.1-1.30); MONOCYTES % (AUTO) 6.7 % (2.0-12.0); NEUTROPHILS # (AUTO) 8.9 K/uL (1.8-8.9); NEUTROPHILS % (AUTO) 77.9 % (43.0-81.0); PLATELET COUNT (AUTO) 270 K/uL (150-450); RED BLOOD CELL COUNT(AUTO) 4.03 MIL/uL (4.5-6.0); RED CELL DISTRIBUTION WIDTH 15.2 % (11.5-15.0); WHITE BLOOD COUNT (AUTO) 11.4 K/uL (4.3-11.0)
[2024-08-04 09:44] LABS: CALCIUM, SERUM 9.1 mg/dL (8.5-10.1); POTASSIUM 4.2 mmol/L (3.5-5.1)
[2024-08-04] MEDS ORDERED: DOXY-326 PO (11:08)
== END 2024-08-04 16:45 | disposition home health service (06) | DRG 720 ==
LOC: ER 07:34 → MED 10:34
PROVIDERS: ADMIT Student in an Organized Health Care Education/Training Program; ATTEND Nurse Practitioner Family
DX: A41.9 Sepsis, unspecified organism (principal); N17.0 Acute kidney failure with tubular necrosis; E87.20 Acidosis, unspecified; E44.0 Moderate protein-calorie malnutrition; E87.1 Hypo-osmolality and hyponatremia; D64.9 Anemia, unspecified; E11.42 Type 2 diabetes mellitus with diabetic polyneuropathy; E86.0 Dehydration; E87.6 Hypokalemia; L03.115 Cellulitis of right lower limb; E78.5 Hyperlipidemia, unspecified; E88.09 Other disorders of plasma-protein metabolism, not elsewhere classified; F15.90 Other stimulant use, unspecified, uncomplicated; I25.10 Atherosclerotic heart disease of native coronary artery without angina pectoris; L03.116 Cellulitis of left lower limb; Z79.82 Long term (current) use of aspirin; Z95.1 Presence of aortocoronary bypass graft; I11.0 Hypertensive heart disease with heart failure; Z68.29 Body mass index [BMI] 29.0-29.9, adult; I50.22 Chronic systolic (congestive) heart failure; I89.0 Lymphedema, not elsewhere classified; I87.313 Chronic venous hypertension (idiopathic) with ulcer of bilateral lower extremity; L97.829 Non-pressure chronic ulcer of other part of left lower leg with unspecified severity; L97.819 Non-pressure chronic ulcer of other part of right lower leg with unspecified severity
CPT/HCPCS: 36415; 71045-TC; 80048-TC; 80061-TC; 80076-TC; 80202-TC; 82962-TC; 83605-TC; 83735-TC; 83880; 84100-TC; 84443-TC; 84484-TC; 85025-TC; 85730-TC; 87040-TC; 93970-TC; 97110-TC; 97112-TC; 97530-TC; A4223; A6403; G0378; G0480; J1644; J1815; J2543; J3370; J3480; J7030; J7060